=== PATIENT | male | born 1960 | race Caucasian/White ===

== ENCOUNTER 2018-06-15 13:18 | Emergency (ER) | payer OTHER ==
[~2018-06-15] VITALS: Ht 180.3 cm; Wt 67.0 kg
[2018-06-15 13:27] VITALS: BP 167/60; PULSE 60; RESP 18; Ht 180.3 cm; Wt 67.0 kg
--- NOTE | 2018-06-15 13:54 | ERD ---
ER Documentation Chief Complaint Chief Complaint Etoh fell out of his wheelchair has abrasion to left arm HPI The patient is a 57-year-old male, presenting to the ER because he fell out of his wheelchair. He complains of left forearm pain and back pain. He is intoxicated and very rude and loud in the ER. He did not want to cooperate with the history and the physical. The history is mostly obtained from the EMS Past medical history: Unknown Past surgical history: Right above-knee amputation ROS Able to obtain because he did not cooperate Medications Home Meds Unable to Obtain Active Prescriptions or Reported Meds Physical Exam Vitals Vital Signs Date Temp Pulse Resp B/P (MAP) Pulse Ox O2 O2 Flow FiO2 Time Delivery Rate 06/15/18 98.1 60 18 167/60 100 13:27 (95) Physical Exam He refused to be examined, was agitated, yelling and did not cooperate Therefore, I am unable to examine the patient Result Diagram: 06/15/18 1435 06/15/18 1435 Results 24 hrs Laboratory Tests Test 06/15/18 14:35 White Blood Count 10.0 10^3/ul Red Blood Count 4.13 10^6/ul Hemoglobin 11.6 g/dl Hematocrit 36.1 % Mean Corpuscular Volume 87.4 fl Mean Corpuscular Hemoglobin 28.1 pg Mean Corpuscular Hemoglobin Concent 32.1 g/dl Red Cell Distribution Width 17.0 % Platelet Count 536 10^3/UL Mean Platelet Volume 8.6 fl Immature Granulocytes % 0.400 % Neutrophils % 71.8 % Lymphocytes % 18.2 % Monocytes % 4.4 % Eosinophils % 3.3 % Basophils % 1.9 % Nucleated Red Blood Cells % 0.0 /100WBC Immature Granulocytes # 0.040 10^3/ul Neutrophils # 7.2 10^3/ul Lymphocytes # 1.8 10^3/ul Monocytes # 0.4 10^3/ul Eosinophils # 0.3 10^3/ul Basophils # 0.2 10^3/ul Nucleated Red Blood Cells # 0.0 10^3/ul Prothrombin Time 11.9 Sec Prothrombin Time Ratio 0.9 INR International Normalized Ratio 0.87 Activated Partial Thromboplast Time 31.3 Sec Sodium Level 150 mmol/L Potassium Level 3.3 mmol/L Chloride Level 116 mmol/L Carbon Dioxide Level 27 mmol/L Anion Gap 7 Blood Urea Nitrogen 10 mg/dl Creatinine 0.70 mg/dl Est Glomerular Filtrat Rate mL/min > 60 mL/min Glucose Level 85 mg/dl Calcium Level 8.6 mg/dl Ethyl Alcohol Level 253.0 mg/dl Current Medications Medications Dose Sig/Maury Start Time Status Last (Trade) Ordered Route PRN Stop Time Admin Dose Reason Admin Diphtheria/ 0.5 ml ONCE ONCE 06/15/18 DC 06/15/18 Tetanus/Acell IM* 14:30 06/15/18 15:30 Pertussis 14:31 (Adacel) Procedures/MDM [place] [address] Radiology Main Line: [phone] DIAGNOSTIC IMAGING REPORT Patient: BRANDON DWYER : 1960 Age: 57 Sex: M MR #: [id number] DOS: 06/15/18 1419 Ordering MD: PRECIOUS JOHNSON MD Location: E/R Room/Bed: PROCEDURE: XR Lumbar Spine. CLINICAL INDICATION: Back pain. TECHNIQUE: AP and lateral views of the lumbar spine were obtained. COMPARISON: None. FINDINGS: Alignment of the lumbar spine is normal. There is moderate to severe compression deformity of L1 vertebral body. There is mild superior endplate compression deformity of L5 vertebral body. Remaining vertebral body heights are maintained. Intervertebral disc spaces are preserved. Bones are osteopenic. There are diffuse atherosclerotic changes of the aorta and iliac arteries. IMPRESSION: 1. Moderate to severe compression deformity of L1 vertebral body, age indeterminate. 2. Mild superior endplate compression deformity of L5 vertebral body, age indeterminate. 3. Osteopenia. 4. Severe aortic atherosclerosis.. RPTAT:HAJM Physician Collins Date Time Electronically viewed and signed by Physician Collins on 06/15/2018 16:03 RM/ CC: PRECIOUS JOHNSON MD [id number] [place] [address] Radiology Main Line: [phone] DIAGNOSTIC IMAGING REPORT Patient: BRANDON DWYER : 1960 Age: 57 Sex: M MR #: [id number] DOS: 06/15/18 1403 Ordering MD: PRECIOUS JOHNSON MD Location: E/R Room/Bed: PROCEDURE: XR Forearm. CLINICAL INDICATION: pain TECHNIQUE: AP and lateral views of the left forearm were obtained. COMPARISON: No prior studies are available for comparison. FINDINGS: There is normal mineralization and alignment. No acute fracture or osseous lesion is identified. There is soft tissue swelling in the left forearm. RPTAT: AA IMPRESSION: Diffuse soft tissue swelling. No acute fracture. Limited study due to the patient's inability to cooperate. .Stuart Garland MD, MD Date Time Electronically viewed and signed by .Stuart Garland MD, MD on 06/15/2018 15:04 .S/ CC: PRECIOUS JOHNSON MD [id number] MEDICAL MAKING DECISION: The patient is a 57-year-old male, presenting with acute alcohol abuse, acute left forearm pain, acute back pain He eloped from the emergency department prior to the availability of the results of the studies Departure Diagnosis: Primary Impression: Alcohol abuse Additional Impressions: Back pain Left forearm pain Condition: Stable (Eloped) PRECIOUS JOHNSON MD Jun 15, 2018 13:54
[2018-06-15] MEDS ORDERED: DIPHTH/TET/ACEL PERTUSS (ADULT) 0.5 ML VIAL IM* ONE (14:30)
== END 2018-06-15 17:47 | disposition home or self-care (01) ==
LOC: E/R 13:18
DX: S40.812A Abrasion of left upper arm, initial encounter (principal); F10.10 Alcohol abuse, uncomplicated; M54.5 Low back pain; W18.39XA Other fall on same level, initial encounter; Z23 Encounter for immunization
CPT/HCPCS: 36415; 72100; 73090; 80048; 80307; 85025; 85610; 85730; 90471; 90715; Z7502